=== PATIENT | male | born 2000 | race African-American/Black ===

== ENCOUNTER 2023-11-29 11:24 | Emergency (ER) | payer MEDICAID, OTHER ==
[~2023-11-29] VITALS: Ht 177.8 cm; Wt 77.0 kg
[2023-11-29 11:32] VITALS: TEMP 98; O2SAT 100
[2023-11-29] MEDS ORDERED: TUSSL MT (12:15)
[2023-11-29] MEDS ORDERED: CETI1TAB MT (12:15)
[2023-11-29 12:38] VITALS: BP 153/63; PULSE 58; RESP 18
== END 2023-11-29 12:39 | disposition home or self-care (01) ==
LOC: ER 11:24
DX: J06.9 Acute upper respiratory infection, unspecified (principal)
CPT/HCPCS: 71045; 99283